=== PATIENT | female | born 1995 | race African-American/Black ===

== ENCOUNTER 2024-12-20 19:49 | Emergency (ER) | payer OTHER, SELFPAY ==
--- NOTE | 2024-12-20 | ECG_ITS ---
Test Reason : palpitations Blood Pressure : */* mmHG Vent. Rate : 70 BPM Atrial Rate : 70 BPM P-R Int : 134 ms QRS Dur : 92 ms QT Int : 392 ms P-R-T Axes : 55 25 37 degrees QTcB Int : 423 ms Normal sinus rhythm Normal ECG No previous ECGs available Referred By: Generic ED Physician Electronically Signed By: ROXI MARROQUIN MD
[2024-12-20 20:08] VITALS: BP 138/87; PULSE 68; RESP 16; TEMP 36.8; O2SAT 100; BMI 33.4
[2024-12-20 20:34] LABS: MANUAL DIFF FLAG NO
[2024-12-20 20:35] LABS: Hematocrit 35.5 % (37.0-47.0); Hemoglobin 11.9 g/dl (12.0-16.0); Imm Gran Abs Auto 0.01 X10*3/uL (0.00-0.03); Imm Gran Pct Auto 0.2 % (0.0-0.4); Lymphocytes Absolute Auto 1.7 X10*3/uL (1.2-4.9); Mean Corpuscular HGB Conc 33.5 g/dl (31.0-35.0); Mean Corpuscular Hemoglobin 28.4 pg (27.0-33.0); Mean Corpuscular Volume 84.7 fL (80.0-98.0); NRBC Abs Auto 0.000 X10*3/uL (0.0-0.012); NRBC Pct Auto 0.0 /100WBC (0.0-0.2); Platelet Count 212 X10*3/uL (160-400); Red Blood Count 4.19 X10*6/uL (4.20-5.50); White Blood Count 5.1 X10*3/uL (4.8-10.8)
[2024-12-20 20:48] LABS: Alanine Aminotransferase 16 U/L (0-31); Albumin Level 4.3 g/dL (3.5-5.0); Alkaline Phosphatase 67 U/L (39-117); Anion Gap 10 (12-20); Aspartate Amino Transferase 23 U/L (5-31); Blood Urea Nitrogen 8 mg/dL (9-16); Calcium 9.7 mg/dL (8.4-10.2); Carbon Dioxide 24 mmol/L (22-29); Chloride 106 mmol/L (96-108); Creatinine Clr Calc Pharmacy 145.4; Estimated Glomerular Filt Rate > 60; Magnesium 1.6 mg/dL (1.6-2.6); Potassium 3.4 mmol/L (3.3-5.1); Sodium 137 mmol/L (135-145); Total Protein 8.0 g/dL (6.5-8.0)
[2024-12-20 23:14] VITALS: BP 121/78; PULSE 75; RESP 20; TEMP 36.8; O2SAT 100
--- OUTSIDE RECORDS SUMMARY | 2024-12-21 00:05 | XMS_ITS | Encounter Summary ---
Author Organization [facility] Address [address] [place] [id number] Care Team Providers Care Structural Design Engineer Name Role Phone No, Pcp (Do Not Change Name) Primary Care Provid er Unavailable Reason for Visit * Reason Comments Medication Refill Encounter Details Date Type Department Care Team ([facility] st Contact Info) Description 07/21/2020 Refill Medical Dermatology at [address] [address] Alyssia Cerda MD [address] [place] [phone] Medication Refill Social History Tobacco Use Types Packs/Day Years Used Date Smoking Tobacco: Never Assessed Comments Unknown Sex and Gender Information Value Date Recorded Sex Assigned at Female 06/07/2020 9:52 AM EDT Legal Sex Female 6:59 AM EST Gender Identity Female 06/07/2020 9:52 AM EDT Sexual Orientation Bisexual 06/07/2020 9: 52 AM EDT documented as of this encounter Plan of Treatment Not on file documented as of this encounter Visit Diagnoses Not on filedocumented in this encounter Care Teams Structural Design Engineer Relationship Specialty Start Date End Date No, Pcp (Do Not Change Name) PCP - General 07/19/20 documented as of this encounter
--- OUTSIDE RECORDS SUMMARY | 2024-12-21 00:06 | XMS_ITS | Encounter Summary ---
Author Organization [facility] Address [address] [place] [phone] Care Team Providers Care Suction Dredge Dumping Supervisor Name Role Phone No, Pcp (Do Not Change Name) Primary Care Provid er Unavailable Reason for Visit * Reason Comments Medication Refill Encounter Details Date Type Department Care Team ([facility] st Contact Info) Description 04/21/2020 Refill [facility] at [address] [address] Alyssia Cerda MD [address] [place] [phone] Medication Refill Social History Tobacco Use Types Packs/Day Years Used Date Smoking Tobacco: Never Assessed Comments Unknown Sex and Gender Information Value Date Recorded Sex Assigned at Female 06/07/2020 9:52 AM EDT Legal Sex Female 6:59 AM EST Gender Identity Female 06/07/2020 9:52 AM EDT Sexual Orientation Bisexual 06/07/2020 9: 52 AM EDT COVID-19 Exposure Response Date Recorded In the last month, have you been in contact with someone who was confirmed or suspected to have Coronavirus / COVID-19? No / Unsure 03/22/2020 3:54 PM EST documented as of this encounter Plan of Treatment Not on file documented as of this encounter Visit Diagnoses Not on filedocumented in this encounter Care Teams Suction Dredge Dumping Supervisor Relationship Specialty Start Date End Date No, Pcp (Do Not Change Name) PCP - General 07/19/20 documented as of this encounter
--- OUTSIDE RECORDS SUMMARY | 2024-12-21 00:06 | XMS_ITS | Clinical Summary ---
Author Organization [address] Address [address] [place] [phone] Care Team Providers Care Underground Mine Superintendent Name Role Phone No, Pcp (Do Not Change Name) Primary Care Provid er Unavailable Allergies No known active allergies Medications etonogestreL-et hinyl estradioL (NUVARING) 0.12-0.015 mg/24 hr vaginal ring INSERT ONE TIME FOR THREE WEEKS 0 Active spironolactone (ALDACTONE) 50 mg tablet TAKE 1 TABLET BY MOUTH EVERY DAY 90 tablet 2 1 Active tazarotene (TAZORAC) 0.1 % gel Apply peasized amount to face at nighttime once a week the first week, then twice a week the second week and increase to nightly as tolerated. Follow with moisturizer. 100 g 6 1 Active tretinoin (RETIN-A) 0.1 % cream Apply topically nightly. Apply every other night for 2-3 weeks then advance to every night as tolerated 45 g 6 1 Active Active Problems No known active problems Social History Tobacco Use Types Packs/Day Years Used Date Smoking Tobacco: Never Assessed Comments Unknown Sex and Gender Information Value Date Recorded Sex Assigned at Female 06/07/2020 9:52 AM EDT Legal Sex Female 6:59 AM EST Gender Identity Female 06/07/2020 9:52 AM EDT Sexual Orientation Bisexual 06/07/2020 9: 52 AM EDT Last Filed Vital Signs Vital Sign Reading Time Taken Comments Blood Pressure 124/70 06/07/2020 11:31 AM EDT Pulse - - Temperature 36.5 C (97.7 F) 07/19/2020 1:39 PM EDT Respiratory Rate - - Oxygen Saturation - - Inhaled Oxygen Concentration - - Weight - - Height - - Body Mass Index - - Plan of Treatment Health Maintenance Due Date Last Done Comments IPV Vaccines (4 of 4 - 4-dose series) 2001 04/18/1999, 06/06/1998, 04/03/1998 HIV screening 2010 Varicella Vaccines (1 of 2 - 13+ 2-dose series) 2010 03/14/1999 HPV vaccine series (1 - 3-dose series) 2012 Hepatitis C screening 12/30/2015 Cervical cancer screening 2018 Influenza vaccine 10/15/2024 01/11/2019 Covid-19 vaccine series ( - season) 2024 08/02/2020, 07/12/2020 DTaP/TDaP Vaccines (6 - Td or Tdap) 03/17/2025 03/17/2015, 09/01/1999, 07/21/1998, Additional history exists Tetanus adult (Td q 10,TDAP once) 03/17/2025 03/17/2015 RSV Immunization (1 - 1-dose 75+ series) 2072 Hepatitis B vaccine series Completed 07/07, 02/06/1998, 01/06/1998 HIB Vaccines Aged Out 09/02/1998, 09/1998, 05/08/1998, Additional history exists No longer eligible based on patient's age to complete this topic MMR Vaccines Completed 02/15/1999 Meningococcal Vaccine Aged Out 01/05/2021 No terrance daria eligible based on patient's age to complete this topic Hepatitis A Vaccines Aged Out No long er eligible based on patient's age to complete this topic Meningococcal B Vaccine Aged Out No l onger eligible based on patient's age to complete this topic Pneumococcal Vaccine (2 - 49 years) Aged Out No longer eligible based on patient's age to complete this topic Rotavirus Vaccines Aged Out No longer eligible based on patient's age to complete this topic Care Teams Underground Mine Superintendent Relationship Specialty Start Date End Date No, Pcp (Do Not Change Name) PCP - General 07/19/20
--- NOTE | 2024-12-21 01:24 | ED.ARRPALP ---
HPI - Arrhythmia/Palpitations General Chief Complaint: Arrhythmia/Palpitations Stated Complaint: heart Palpitations. dizziness Time Seen by Provider: 12/20/24 23:12 Source: patient Mode of arrival: ambulatory Limitations: no limitations History of Present Illness ED Provider: Dr. Lashonda Vargas HPI narrative: Previously healthy 29-year-old female presenting with heart palpitations and dizziness associated with shortness of breath that began a few hours prior to arrival. Patient felt dizzy and had to sit down. Did not lose consciousness completely. Has had these issues in the past and has been worked up by a bone cooking operator including a Holter monitor which did not show any concerning arrhythmias. Patient has not been placed on any new medications. She denies excessive caffeine or alcohol use. Denies illicit substance use. Had been feeling well earlier in the day. Denies fever, cough or cold-type symptoms, chest pain, difficulty breathing, abdominal pain, nausea or vomiting, known sick contacts or travel. Related Data Allergies Allergy/AdvReac Type Severity Reaction Status Date / Time No Known Allergies Allergy Verified 12/20/24 20:10 Review of Systems Review of Systems: as per HPI, full review of systems performed and negative but for the above mentioned pertinent positives and negatives. [facility] Social History Social History Smoked in Last 30 Days: No Use of substances other than those prescribed or required for medical reasons: No Advance Directives: No Advance Directives Information Provided: Yes Patient : No Physical Exam Exam: Exam: GENERAL: Well-Appearing, conversant, no acute distress. SKIN: Normal skin color for ethnicity, warm, dry, no rashes noted. HEENT:? Normocephalic, atraumatic, no stridor, posterior oropharynx nonerythematous, dentition intact, EOMI. NECK: Soft, supple, full ROM, midline structures nontender, no step-offs, no deformities, no lymphadenopathy. CHEST: Heart regular rate and rhythm, no murmurs, symmetric chest rise and fall. PULMONARY: Clear to auscultation bilaterally, no labored breathing, no wheezes/rhales/rhonchi. ABDOMINAL: Soft, nondistended, nontender, positive bowel sounds in all quadrants. : Deferred. MUSCULOSKELETAL: Normal tone, full range of motion, no deformities, no peripheral edema. NEURO: Alert and oriented x3, CN II through XII intact, equal strength and sensation bilateral upper and lower extremities, no focal neurologic deficits.? PSYCHIATRIC: Normal affect, fluid speech, good eye contact and appropriate demeanor. Vital Signs: Vital Signs: Last Vital Signs Temp 98.4 F 12/21/24 02:29 Pulse 72 12/21/24 02:29 Resp 18 12/21/24 02:29 BP 136/72 12/21/24 02:29 Pulse Ox 98 12/21/24 02:29 O2 Del Method Room Air 12/21/24 02:29 BMI result Body Mass Index 33.4 Medications Administered Discontinued Medications Generic Name Dose Route Start Last Admin Trade Name Freq PRN Reason Stop Dose Admin Magnesium Oxide 400 mg 12/21/24 01:25 12/21/24 01:57 Magnesium Oxide 400 Mg Tablet PO 12/21/24 01:26 400 mg ONCE ONE Administration Medical Decision Making Medical Decision Making [facility] Narrative: Patient presenting with chief complaint of heart palpitations. Differential diagnosis includes heart palpitations, electrolyte abnormality, arrhythmia, ACS, thyroid dysfunction, substance use including stimulants such as caffeine, amphetamines, drug toxicity, among many others. Patient's exam today is reassuring. Blood work, EKG, vital signs all reassuring. D-dimer was negative, making her low risk for PE. Heart score 0. Using shared decision making, plan for discharge home to follow-up with primary care and/or specialist. Patient understands and agrees with plan for discharge. Discharged home in stable condition. Differential Diagnosis Differential Diagnoses: The differential diagnosis associated with the presentation includes (as above) Admission/Observation Consideration of admission/observation: Escalation of care including admission/observation considered Lab Data [facility] Lab Attestation statement: I reviewed the patient's lab results. 12/20/24 20:30 12/20/24 20:30 Labs: Lab Results 12/20/24 12/21/24 Range/Units 20:30 01:45 WBC 5.1 (4.8-10.8) X10*3/uL RBC 4.19 L (4.20-5.50) X10*6/uL Hgb 11.9 L (12.0-16.0) g/dl Hct 35.5 L (37.0-47.0) % MCV 84.7 (80.0-98.0) fL MCH 28.4 (27.0-33.0) pg MCHC 33.5 (31.0-35.0) g/dl RDW 13.1 (11.0-16.0) % Plt Count 212 (160-400) X10*3/uL MPV 9.1 L (9.4-12.3) fL Immature Gran % (Auto) 0.2 (0.0-0.4) % Neut % (Auto) 58.8 (45-73) % Lymph % (Auto) 32.9 (20-40) % Millard % (Auto) 7.3 (2-11) % Eos % (Auto) 0.6 (0-4) % Baso % (Auto) 0.2 (0-2) % Lymph # (Auto) 1.7 (1.2-4.9) X10*3/uL Millard # (Auto) 0.4 (0.1-1.2) X10*3/uL Eos # (Auto) 0.0 (0.0-0.4) X10*3/uL Baso # (Auto) 0.0 (0.0-0.2) X10*3/uL Abs Immat Gran (auto) 0.01 (0.00-0.03) X10*3/uL Absolute Neuts (auto) 3.0 (2.0-8.3) x10*3/uL Absolute Nucleated RBC 0.000 (0.0-0.012) X10*3/uL Nucleated RBC % (auto) 0.0 (0.0-0.2) /100WBC D-Dimer High Sensitivty 196 NG/ML Sodium 137 (135-145) mmol/L Potassium 3.4 (3.3-5.1) mmol/L Chloride 106 (96-108) mmol/L Carbon Dioxide 24 (22-29) mmol/L Anion Gap 10 L (12-20) BUN 8 L (9-16) mg/dL Creatinine 0.63 (0.5-1.4) mg/dL Estim Creat Clear Calc 145.4 Estimated GFR > 60 Random Glucose 88 (60-115) mg/dL Calcium 9.7 (8.4-10.2) mg/dL Magnesium 1.6 (1.6-2.6) mg/dL Total Bilirubin 0.3 (0.0-1.0) mg/dL AST 23 (5-31) U/L ALT 16 (0-31) U/L Alkaline Phosphatase 67 (39-117) U/L Total Protein 8.0 (6.5-8.0) g/dL Albumin 4.3 (3.5-5.0) g/dL TSH 2.41 (0.32-4.0) uIU/mL Independent Interpretation I performed an independent interpretation of an: EKG Interpretation: My independent interpretation of the ECG reveals normal sinus rhythm with rate of 70, normal axis, normal intervals, no ST elevations or depressions to suggest ischemic changes, no previous for comparison. Independent Historian Clinical information obtained from an independent historian. History obtained from or confirmed by: Spouse Discharge Plan Discharge Clinical Impression: Palpitations, Lightheadedness Patient Disposition: Home, Self-Care Instructions: Heart Palpitations (ED), Hypomagnesemia (ED) Additional Instructions: DIAGNOSIS & TREATMENT: You were seen in the Emergency Department for your chest discomfort. We performed an EKG and laboratory work which did not reveal any acute abnormalities that would explain your symptoms. Continue to pay close attention to your blood pressure and heart rate while you are up moving around. If you begin to feel lightheaded while walking, sit down or lay down with your legs above the level of your heart. Your magnesium was slightly low today which can contribute to heart palpitations and arrhythmias. You can take a magnesium supplement to help with this. Alternatively, you can increase magnesium rich foods in your diet. FURTHER CARE: We have not found any emergent physical exam or lab abnormalities that would require admission to the hospital today. Many people who come to the ER with chest discomfort do not leave with a specific diagnosis at the end of their visit. In the Emergency Department we try to make sure that there is no emergent problem that needs admission to the hospital or antibiotics right now. This does not mean that your evaluation is complete--please be sure to follow up with your regular doctor as additional testing as an outpatient may be indicated. Please be certain to drink plenty of fluids over the next several days. WHEN YOU SHOULD BE SEEN NEXT: Please follow-up with your primary care provider within the next 2-3 days for reevaluation of your symptoms. WHEN TO RETURN TO THE ED: Monitor your symptoms closely and return to the emergency department immediately for any new/worsening symptoms including: Worsening chest pain, difficulty breathing, fevers greater than 100 degrees, passing out, any new symptom that concerns you. Call 911 with any medical emergency. Interventions: ED Discharge Assessment Last Done: 12/21/24 02:29 Discharge Date/Time: 12/21/24 02:31 Print Language: Venezuelan
[2024-12-21 01:55] VITALS: BP 128/83; BP 129/80; PULSE 60; PULSE 61
[2024-12-21 01:56] VITALS: BP 144/97; PULSE 75
[2024-12-21 02:01] LABS: D Dimer High Sensitivity 196 NG/ML
[2024-12-21 02:27] VITALS: BP 136/72; PULSE 72; RESP 18; TEMP 36.9; O2SAT 98
[2024-12-21 02:29] VITALS: BP 136/72; PULSE 72; RESP 18; TEMP 36.9; O2SAT 98
== END 2024-12-21 02:31 | disposition home or self-care (01) ==
PROVIDERS: Emergency Provider Emergency Medicine
DX: R00.2 Palpitations (principal); R42 Dizziness and giddiness
CPT/HCPCS: 36415; 80053; 83735; 84443; 85025; 85379; 93005; 99283; 99285

== ENCOUNTER → 2024-12-20 19:59 | Outpatient (BNV) | payer OTHER, SELFPAY | PROVIDERS: Emergency Provider Emergency Medicine; Visit Provider Internal Medicine Cardiovascular Disease | DX: R00.2 Palpitations (principal) | CPT/HCPCS: 93010 ==